=== PATIENT | male | born 1965 | race Caucasian/White ===

== ENCOUNTER → 2017-02-14 | Outpatient (CLI) | payer OTHER | LOC: FIMAGING 13:04 | PROVIDERS: ATTEND Orthopaedic Surgery Sports Medicine | DX: S83.231A Complex tear of medial meniscus, current injury, right knee, initial encounter (principal); M23.91 Unspecified internal derangement of right knee; M76.891 Other specified enthesopathies of right lower limb, excluding foot; M25.461 Effusion, right knee ==